=== PATIENT | female | born 1960 | race Caucasian/White ===

== ENCOUNTER 2017-12-04 14:50 | Observation (INO) ==
[2017-12-04] MEDS ORDERED: DILTIAZEM HCL 125 MG in DEXTROSE 5 % IN WATER 100 ML IV PRN ×2 (15:05)
[2017-12-04] MEDS ORDERED: DILTIAZEM HCL 5 MG/ML VIAL IV ONE (15:05)
[2017-12-04 15:23] LABS: Hematocrit 38.9 % (37.0-47.0); Hemoglobin 12.8 gm/dL (12.5-16.0); Mean Corpuscular Hemoglobin 33.2 pg (27-31); Mean Corpuscular Hgb Conc 32.9 g/dl (32-36); Mean Platelet Volume 9.9 fl (8-12.5); Neutrophil # 4.3 K/mm3 (1.3-6.0); Neutrophil % 58.2 % (42-75.0); Platelet Count 303 K/mm3 (150-450); Red Blood Count 3.85 M/mm3 (4.2-5.4); Red Cell Distribution Width 13.5 % (11.5-14.0); White Blood Count 7.3 K/mm3 (4.0-10.5)
[2017-12-04] MEDS ORDERED: ENOXAPARIN SODIUM 100 MG/ML SYRG SC ONE ×2 (15:31→15:49)
--- NOTE | 2017-12-04 15:38 | ERNOTE ---
Chest Pain/Cardiac HPI Chief Complaint: Palpitations Time Seen by Provider: 12/04/17 15:05 Source: patient, family Exam Limitations: no limitations Immunizations: IMMUNIZATION HX Immunizations Up to Date Yes History of Influenza Vaccine Yes Hx Pneumococcal Vaccination Yes Allergies/Adverse Reactions: Allergies No Known Allergies Allergy (Unverified 09/11/17 09:00) Home Medications: HOME MEDICATIONS Cyanocobalamin [Vitamin B-12] 1,000 mcg PO DAILY 09/11/17 [Last Taken Unknown] Divalproex Sodium [Depakote ER] 250 mg PO DAILY 09/11/17 [Last Taken Unknown] FLUoxetine HCL [Prozac] 40 mg PO DAILY 09/11/17 [Last Taken Unknown] Folic Acid 0.4 mg PO DAILY 09/11/17 [Last Taken Unknown] Narrative: Patient states that for perhaps the last 4 or 5 days she's noticed that with any form of exertion that she has been feeling very weak and has decreased stamina. She showed up at her family practice doctor's office today and found to be in atrial fibrillation with a rapid ventricular response and she was sent to the emergency room. Timing: intermittent Severity/Quality: moderate Chest Pain Radiation: no radiation Activities at Onset: activity Modifying Factors - Improves: Present: rest Modifying Factors - Worsens: Present: exercise Associated Symptoms: Present: denies symptoms Prior Chest Pain/Cardiac Workup: Reports: no prior cardiac workup Prior Treatment: Reports: recently seen, treated by physician Review of Systems - Review of Systems Constitutional: Present: See HPI EYE: Present: no symptoms reported ENT: Present: no symptoms reported Respiratory: Present: no symptoms reported Cardiology: Present: See HPI Gastrointestinal/Abdominal: Present: no symptoms reported Genitourinary: Present: no symptoms reported Musculoskeletal: Present: no symptoms reported Skin: Present: no symptoms reported Neurological: Present: no symptoms reported Endocrine: Present: no symptoms reported Hematologic/Lymphatic: Present: no symptoms reported Psych: Present: no symptoms reported - Patient's Past Medical History Patient History - Medical: Anxiety, Depression, Other Patient History - Cardiac/Respiratory: No pertinent hx Patient History - Cancer: No Hx of Cancer Patient History - Surgical Procedures: Cataracts, Patient History - Other: None - Family History Father Family History - Medical: , No pertinent hx Family History - Cardiac/Respiratory: No pertinent hx Family History - Cancer: Other Mother Family History - Medical: No pertinent hx Family History - Cardiac/Respiratory: Hypertension Family History - Cancer: No pertinent family hx - Social History Living Situations: home Abuse History: No History of abuse Psych History: Hx of Anxiety, Hx of Depression Smoking Status: Never smoker Have you smoked in the past 12 months: No Do you dip or chew tobacco: No Alcohol Use: occasionally Drug Use: none - Immunizations Immunizations Up to Date: Yes Hx Pneumococcal Vaccination: Yes History of Influenza Vaccine: Yes Physical Exam - Physical Exam General Appearance: Present: wd/wn, alert, no apparent distress Head Exam: Present: normal inspection, no evidence of injury Eye Exam: Normal inspection: bilateral, PERRL: bilateral Ears, Nose, Throat: Present: normal ENT inspection, H, normal pharynx Neck: Present: normal inspection, nontender Respiratory: Present: no respiratory distress, normal breath sounds, no accessory muscle use, chest nontender, lungs clear Cardiovascular/Chest: Present: no murmur, normal peripheral pulses, tachycardia , irregularly irregular Gastrointestinal/Abdominal: Present: normal bowel sounds, nontender, nondistended, soft, no organomegaly Rectal Exam: Present: deferred Back Exam: Present: normal inspection, normal range of motion Extremity Exam: Present: normal inspection, non-tender, no edema, normal range of motion Neurological Exam: Present: alert, oriented, normal mood/affect Skin Exam: Present: normal color, warm/dry Lymphatic Exam: Present: no adenopathy ED Progress - Results and Orders Patient's Lab Results:: I have reviewed the patient's lab results. - Vital Signs Patient's Vital Signs:: I have reviewed the patient's vital signs. Vital Signs: Vital Signs 12/04/17 14:58 Temperature 36.4 C L Pulse Rate 118 H Respiratory 14 Rate Blood Pressure 121/73 O2 Sat by Pulse 97 Oximetry - EKG EKG: atrial fibrillation - X-Ray X-Ray #1 X-Ray: chest Interpretation: Reviewed by me - Progress/Reassessment Chief Complaint: Palpitations Plan - Plan Plan: Patient's heart rate has done substantially better after the Cardizem bolus of 20 mg and the drip. She was given Lovenox subcutaneous to start her anticoagulation cascade. She is not a candidate for immediate cardioversion, since we believe she's been in atrial fibrillation for 4-5 days, she will not need to be transferred. Reportedly the hospital overnight to we can get a better handle on her heart rate and provide her with the anticoagulation that Dr. Miramontes deems necessary. Departure Clinical Impression: Atrial fibrillation with rapid ventricular response - Departure Disposition: Still a patient Condition: Critical Referrals: Lore Mari DO [Primary Care Provider] - Critical Care Note - Critical Care Note Total Time (mins): 35 Comments: Patient was in atrial fibrillation with a rapid ventricular response and needed both a Cardizem bolus and a Cardizem drip to help control her rate.
[2017-12-04 15:48] LABS: INR 1.1 INR (0.90-1.10)
[2017-12-04 15:50] LABS: ALT 58 U/L (19-67); AST 19 U/L (0-48); Albumin * 3.2 gm/dl (3.4-5.0); Alkaline Phosphatase * 87 U/L (50-170); Anion Gap 12.6 mmol/L (6.8-13.8); Bilirubin, Total 0.3 mg/dL (0.0-1.1); Blood Urea Nitrogen 16 mg/dL (3-23); Ca. Corrected For Albumin 9.5 mg/dL (8.4-10.2); Calcium * 9.2 mg/dL (7.9-10.9); Carbon Dioxide 26.5 mmol/L (24-32.6); Chloride 104 mmol/L (97-106); Glucose * 111 mg/dL (70-110); Potassium 4.1 mmol/L (3.4-4.6); Sodium 139 mmol/L (132-142); Total Protein 6.9 gm/dL (6.2-8.2); Troponin I Less than 0.017 ng/ml (0.00-0.10)
--- NOTE | 2017-12-04 20:34 | HP ---
Chief Complaint - Chief Complaint Date of Service: 12/04/17 Time of Service: 19:45 Chief Complaint: Fatigue and shortnes sof breath on exertion History of Present Illness: 57 years old female adm to the hospital with reports of fatigue and shortness of breath over the weekend. PMH significant for depression, obesity and thyroid cyst benign. pt stated she was visiting family over the weekend and was getting more excessively fatigued. She denies palpitation, nausea, vomiting, dizziness, chest pain or diaphoresis. The feeling continues yesterday but she still wasn't feeling too compelled to seek help. However today she felt worse and was seen by Dr Mari in [place], during the visit she was instructed to come [facility] ER due to concerns for a-fib. While in ER EKG- A-fib with RVR.. She was given Cardizem 20mg IV x1 and Lovenox 90mg Sc x1. She was initiated on Cardizem drip and adm to the unit. Plan of care discussed with pt she verbalized understanding and agrees. - Patient's Past Medical History Patient History - Medical: Anxiety, Bipolar, Depression, Other Patient History - Cardiac/Respiratory: No pertinent hx Patient History - Cancer: No Hx of Cancer Patient History - Surgical Procedures: Cataracts, Patient History - Other: None - Family History Father Family History - Medical: , No pertinent hx Family History - Cardiac/Respiratory: No pertinent hx Family History - Cancer: Other Mother Family History - Medical: No pertinent hx Family History - Cardiac/Respiratory: Hypertension Family History - Cancer: No pertinent family hx - Social History Living Situations: spouse Abuse History: No History of abuse Psych History: Hx of Anxiety, Hx of Depression, Hx of Bipolar Disorder Smoking Status: Former smoker - quit 14yrs ago Have you smoked in the past 12 months: No Do you dip or chew tobacco: No Smoking Start Date: 07/02/79 Smoking Stop Date: 07/02/03 Patient requests Smoking Cessation Consult: No Initiate information on Smoking Cessation: No Alcohol Use: occasionally Drug Use: none - Immunizations Immunizations Up to Date: Yes Hx Pneumococcal Vaccination: Yes History of Influenza Vaccine: Yes Review Of Systems (GEN) - Review of Systems Generalized/Overall Review: Present: Fatigue EENTM: Present: No Symptoms Reported Respiratory: Present: Shortness of Breath Cardiac: Present: No Symptoms Reported Abdominal: Present: No Symptoms Reported Genitourinary: Present: No Symptoms Reported Musculoskeletal: Present: No Symptoms Reported Neurological: Present: No Symptoms Reported Skin: Present: No Symptoms Reported Endocrine: Present: No Symptoms Reported Immunizations: IMMUNIZATION HX Immunizations Up to Date Yes History of Influenza Vaccine Yes Hx Pneumococcal Vaccination Yes Allergies/Adverse Reactions: Allergies Allergy/AdvReac Type Severity Reaction Status Date / Time No Known Allergies Allergy Unverified 09/11/17 09:00 Home Medications: HOME MEDICATIONS Cyanocobalamin [Vitamin B-12] 1,000 mcg PO DAILY 09/11/17 [Last Taken Unknown] Divalproex Sodium [Depakote ER] 250 mg PO DAILY 09/11/17 [Last Taken Unknown] FLUoxetine HCL [Prozac] 40 mg PO DAILY 09/11/17 [Last Taken Unknown] RX: Folic Acid 0.4 mg PO DAILY 09/11/17 [Last Taken Unknown] Exam - Exam Vital Signs: Vital Signs - Last Taken Temp 36.8 C 12/04/17 20:22 Pulse 109 H 12/04/17 20:22 Resp 14 12/04/17 20:22 BP 110/72 12/04/17 20:22 Pulse Ox 97 12/04/17 20:22 Constitutional: Present: Alert, Oriented x3, Cooperative, Young ENT Exam: Present: hearing grossly normal Eye Exam: bilateral eye: normal inspection Neck: Present: full range of motion Back Exam: Present: normal inspection, no CVA tenderness Respiratory: Present: chest non-tender, lungs clear, normal breath sounds, no respiratory distress Cardiovascular/Chest: Present: no chest tenderness, no edema, no gallop, no JVD , no murmur, irregularly irregular Peripheral Pulses: carotid (R): 3+, carotid (L): 3+, dorsalis-pedis (R): 3+, dorsalis-pedis (L): 3+ Abdomen: Present: Normal bowel sounds, soft, nontender, nondistended, no rebound tenderness, no hepatospenomegaly /Rectal: Present: Exam deferred, External genitalia normal Extremity: Present: normal range of motion, non-tender, normal inspection, no pedal edema, no calf tenderness Skin Exam: Present: normal color, warm/dry, no cyanosis Lymphatic: Present: no adenopathy Neurologic: Present: normal mood/affect, oriented x 3 Appearance: Present: appropriate appearance, appropriate insight Eye contact: Present: cooperative, good eye contact Thoughts: Present: normal thought pattern, no apparent hallucination Diagnostic Studies: Laboratory Results WBC 7.3 K/mm3 (4.0-10.5) 12/04/17 15:20 RBC 3.85 M/mm3 (4.2-5.4) L 12/04/17 15:20 Hgb 12.8 gm/dL (12.5-16.0) 12/04/17 15:20 Hct 38.9 % (37.0-47.0) 12/04/17 15:20 MCV 101.0 fl (78-100) H 12/04/17 15:20 MCH 33.2 pg (27-31) H 12/04/17 15:20 MCHC 32.9 g/dl (32-36) 12/04/17 15:20 RDW 13.5 % (11.5-14.0) 12/04/17 15:20 Plt Count 303 K/mm3 (150-450) 12/04/17 15:20 MPV 9.9 fl (8-12.5) 12/04/17 15:20 Immature Gran % (Auto) 0.30 % (0.001-0.429) 12/04/17 15:20 Immature Gran # (Auto) 0.02 K/mm3 (0.000-0.0310) 12/04/17 15:20 Neutrophils % 58.2 % (42-75.0) 12/04/17 15:20 Lymphocytes % 28.6 % (20-51) 12/04/17 15:20 Monocytes % 10.3 % (0.0-9) H 12/04/17 15:20 Eosinophils % 1.9 % (0.0-3.0) 12/04/17 15:20 Basophils % 0.7 % (0.0-1.0) 12/04/17 15:20 Nucleated RBC % 0.0 k/mm3 (0-1) 12/04/17 15:20 Neutrophils # 4.3 K/mm3 (1.3-6.0) 12/04/17 15:20 Lymphocytes # 2.09 k/mm3 (1.5-3.5) 12/04/17 15:20 Monocytes # 0.8 k/mm3 (0.0-1.0) 12/04/17 15:20 Eosinophils # 0.1 k/mm3 (0.0-0.7) 12/04/17 15:20 Absolute Basophils 0.1 k/mm3 (0.0-0.1) 12/04/17 15:20 PT 11.0 Seconds (9.0-11.0) 12/04/17 15:20 INR (Anticoag Therapy) 1.10 INR (0.90-1.10) 12/04/17 15:20 PTT ([place]) 25.0 Seconds (24-32) 12/04/17 15:20 Sodium 139 mmol/L (132-142) 12/04/17 15:20 Plasma Sodium 139 mmol/L (130-142) 12/04/17 15:20 Potassium 4.1 mmol/L (3.4-4.6) 12/04/17 15:20 Chloride 104 mmol/L (97-106) 12/04/17 15:20 Carbon Dioxide 26.5 mmol/L (24-32.6) 12/04/17 15:20 Anion Gap 12.6 mmol/L (6.8-13.8) 12/04/17 15:20 BUN 16 mg/dL (3-23) 12/04/17 15:20 Creatinine 0.89 mg/dL (0.4-1.4) 12/04/17 15:20 Est GFR (Non-Af Amer) 69 mL/min (60-130) 12/04/17 15:20 BUN/Creatinine Ratio 18.0 (9.0-21.6) 12/04/17 15:20 Random Glucose 111 mg/dL (70-110) H 12/04/17 15:20 Calcium 9.2 mg/dL (7.9-10.9) 12/04/17 15:20 Calcium Adj for Albumin 9.5 mg/dL (8.4-10.2) 12/04/17 15:20 Magnesium 2.0 mg/dL (1.2-2.8) 12/04/17 Unknown Total Bilirubin 0.3 mg/dL (0.0-1.1) 12/04/17 15:20 AST 19 U/L (0-48) 12/04/17 15:20 ALT 58 U/L (19-67) 12/04/17 15:20 Alkaline Phosphatase 87 U/L (50-170) 12/04/17 15:20 Troponin I Less than 0.017 ng/ml (0.00-0.10) 12/04/17 15:20 Total Protein 6.9 gm/dL (6.2-8.2) 12/04/17 15:20 Albumin 3.2 gm/dl (3.4-5.0) L 12/04/17 15:20 CXR: Large cardiomegaly, pulmonary vascular congestion, Thoracic aortic atheroslecotic disease and COPD Assessment/Plan - Narrative Narrative: New onset afib Seen on EKG while in ER, HR 113-139 Continue with telemetry monitoring CXR: large cardiomegaly, pulmonary vascular congestion, Thoracic aortic atheroslecotic disease and COPD 2D-echo as out-pt TSH pending Cardizem 20mg IV x1 in ER, she was continue with Cardizem drip while in the unit. Will Initiate oral Cardizem 60mg Q8hrs when off drip. CHADz2 score Lovenox 90mg SC x1 In ER Continue with Lovenox BID and initiated Coumadin 5 mg now. Monitor INR in the morning Depression-stable Continue with home medications Code status: Full VTE ppx: On therapeutic Lovenox and Coumadin for a-fib - Assessment/Plan (1) Atrial fibrillation with rapid ventricular response Problem: Acute (2) Depressed Problem: Chronic (3) Bipolar 1 disorder Problem: Chronic
[2017-12-04] MEDS ORDERED: WARFARIN SODIUM 5 MG TABLET PO ONE (21:01)
[2017-12-04] MEDS: DILTIAZEM HCL 60 MG TABLET PO SCH (21:48)
[2017-12-05 05:00] LABS: Prothrombin Time (Patient) 10.8 Seconds (9.0-11.0)
[2017-12-05 05:13] LABS: INR 1.08 INR (0.90-1.10)
[2017-12-05 05:18] LABS: TSH * 2.003 uIU/mL (0.358-3.74)
[2017-12-05] MEDS: DILTIAZEM HCL 60 MG TABLET PO SCH (05:59)
[2017-12-05] MEDS ORDERED: ENOXAPARIN SODIUM 100 MG/ML SYRG SC SCH (06:00)
[2017-12-05 07:03] VITALS: BP 116/72
[2017-12-05] MEDS ORDERED: CYANOCOBALAMIN 1,000 MCG TABLET PO SCH (09:00)
[2017-12-05] MEDS ORDERED: FLUoxetine HCL 20 MG CAPSULE PO SCH (09:00)
[2017-12-05] MEDS ORDERED: DIVALPROEX SODIUM 250 MG TAB.SR.24H PO SCH (09:00)
[2017-12-05] MEDS ORDERED: FOLIC ACID 0.4 MG TABLET PO SCH (09:00)
--- NOTE | 2017-12-05 09:06 | DS ---
(1) Atrial fibrillation with rapid ventricular response Problem: Acute (2) Bipolar 1 disorder Problem: Chronic Description of Stay: Joanie Vargas, 57 years old female, adm to the hospital on 12/04/2017 with reports of fatigue and shortness of breath over the weekend. PMH significant for depression, obesity and thyroid cyst benign. pt stated she was visiting family over the weekend and was getting more excessively fatigued. She denied palpitation, nausea, vomiting, dizziness, chest pain or diaphoresis. The feeling continued one day prior to admission but she still wasn't feeling too compelled to seek help. However, on the day of admission, she felt worse and was seen by Dr Mari in [place]. During the visit she was instructed to come [facility] ER due to concerns for a-fib. While in ER EKG- A-fib with RVR.. She was given Cardizem 20mg IV x1 and Lovenox 90mg Sc x1. She was initiated on Cardizem drip and adm to the unit. Plan of care discussed with pt she verbalized understanding and agrees. She remains in AFib but rate controlled . Discussion was doen about Rhythm vs Rate control. Since this is her first episode , we will likely try to do an electrocardioversion in 4 weeks after anticoagulaion. If she chose to do just do rate control ,. I felt she could just be on ASA as her only risk factor is her sex. Will discharge her on on Eliquis BID in case she is still in AFib in 4 weeks for possible electrocardioversion if she wants rhytm control. We will schedule an Echo on outpatient basis. Follow up with her PCP next week. Procedures Performed: none Discharge Location: Home Disposition: Home self-care Condition: Good Discharge Activity: Activity as tolerated Discharge Diet: General/regular food Referrals: Lore Mari DO [Primary Care Provider] - Problem Oriented Discharge Instructions to Patient/Family: Atrial Fibrillation , [id number] Additional Patient Instructions (free text): ECHO outpatient - new onset AFib - Sunday12/10/17 @ 0900 Follow up with 12/10/17 @ 5350 Cardiology @ [facility] 12/25/17 @ 6450 (Registration # [id number]) Prescriptions (Any new or edited meds): Apixaban [Eliquis] 5 mg PO BID #60 tablet Diltiazem HCl [Cardizem] 60 mg PO Q8H #2 tablet Diltiazem HCl [Cardizem Cd] 180 mg PO DAILY #30 cap Complete Home Medications List: Complete Home Medication List: Cyanocobalamin [Vitamin B-12] 1,000 mcg PO DAILY 09/11/17 Divalproex Sodium [Depakote ER] 250 mg PO DAILY 09/11/17 FLUoxetine HCL [Prozac] 40 mg PO DAILY 09/11/17 Folic Acid 0.4 mg PO DAILY 09/11/17 Apixaban [Eliquis] 5 mg PO BID #60 tablet 12/05/17 Diltiazem HCl [Cardizem Cd] 180 mg PO DAILY #30 cap 12/05/17 Diltiazem HCl [Cardizem] 60 mg PO Q8H #2 tablet 12/05/17 Amb Orders for Discharge: US Echocardiogram Complete * Location: Determined By Patient
[2017-12-05] MEDS ORDERED: ALBUTEROL SULFATE 2.5 MG/0.5 ML VIAL.NEB IH ONE (09:10)
[2017-12-05] MEDS ORDERED: WARFARIN SODIUM 5 MG TABLET PO SCH (17:00)
[2017-12-05] MEDS ORDERED: ENOXAPARIN SODIUM 30 MG, ENOXAPARIN SODIUM 60 MG SC SCH ×2 (18:00)
== END 2017-12-05 11:00 | disposition home or self-care (01) ==
LOC: ER 14:50 → SCU 17:21
PROVIDERS: ADMIT Internal Medicine; ATTEND Internal Medicine
DX: E66.9 Obesity, unspecified; I48.91 Unspecified atrial fibrillation; F31.9 Bipolar disorder, unspecified; Z87.891 Personal history of nicotine dependence; Z68.31 Body mass index [BMI] 31.0-31.9, adult; F32.9 Major depressive disorder, single episode, unspecified
CPT/HCPCS: 36415; 71020; 71046; 80053; 80061; 83735; 84443; 84484; 85025; 85610; 85730; 93005; 96365; 96366; 96372; 96375; 99291; G0378